=== PATIENT | female | born 1955 | race Caucasian/White ===

== ENCOUNTER → 2024-05-16 | Outpatient (CLI) | payer MEDICARE ==
--- NOTE | 2024-05-16 10:15 | CTL ---
EXAMINATION TYPE: CT Low Dose Lung DATE OF EXAM ORDERED: 05/16/2024 COMPARISON: None. CLINICAL INDICATION: Female, 68 years old with history of Z12.2 LUNG CA SCR Z87.891 FORMER SMOKER; PH H, Former smoker., Lung cancer screening, History of Smoking/tobacco use. TECHNIQUE: Low dose computed tomography scan was performed through the chest at 1 mm thick sections a nd reconstructed images in multiple planes at 1 mm and [address] DLP: [address] CTDI: 1.95 mGy Automated exposure control for dose reduction was used. CT DIAGNOSTIC QUALITY: Limited, but interpretable FINDINGS: Nodules: RUL: There is 6 x 3 mm medial right upper lobe pulmonary nodule image 69. RML: None. RLL: None. MALVIN: None. LLL: None. No greater than 6 mm pulmonary nodules seen bilaterally LUNGS: COPD: Severity: Mild Fibrosis: Severity: None Lymph nodes: None Other findings: None RIGHT PLEURAL SPACE: Effusion: None Calcification: None Thickening: None Pneumothorax: None Elevated right hemidiaphragm noted. LEFT PLEURAL SPACE: Effusion: None Calcification: None Thickening: None Pneumothorax: None HEART: Heart Size: Normal Coronary Calcification: Moderate to severe Pericardial Effusion: None OTHER FINDINGS: Upper abdomen: None Bony thorax: Surgical change to the lumbar spine is partially seen on the localizer. Scoliotic curvat ure in the thoracic spine is present. Supraclavicular region: None Other: None IMPRESSION: Mild emphysematous change without greater than [address] LUNG RAD AND CT CHEST RECOMMENDATION: Lung-Rad 2 Benign Appearance or Behavior: Continue annual sc reening with LDCT in 12 months. S Modifier (other clinically significant findings): S Moderate to severe coronary artery calcification should be correlated with additional cardiac risk fa ctors. [facility], , 05/16/2024 10:13 AM
== END | disposition home or self-care (01) ==
LOC: RADCTMAIN 09:26
PROVIDERS: ATTEND Internal Medicine Critical Care Medicine
DX: Z12.2 Encounter for screening for malignant neoplasm of respiratory organs (principal); J43.9 Emphysema, unspecified; I25.10 Atherosclerotic heart disease of native coronary artery without angina pectoris
CPT/HCPCS: 71271

== ENCOUNTER → 2024-05-16 | Outpatient (CLI) | payer MEDICARE ==
--- NOTE | 2024-05-16 11:38 | FL ---
EXAMINATION TYPE: FL sniff test without CXR DATE OF EXAM: 05/16/2024 COMPARISON: NONE HISTORY: Elevated right hemidiaphragm TECHNIQUE: Sniff test.41 secs FL FINDINGS: There is paradoxic motion of the right hemidiaphragm relative to normal incursion and excu rsion of the left hemidiaphragm. IMPRESSION: Paralyzed right hemidiaphragm [facility], , 05/16/2024 11:36 AM
== END | disposition home or self-care (01) ==
LOC: RADFLMAIN 09:23
PROVIDERS: ATTEND Internal Medicine Critical Care Medicine
DX: Q79.1 Other congenital malformations of diaphragm (principal)
CPT/HCPCS: 76000

== ENCOUNTER 2024-07-05 00:01 | Inpatient (IN) | payer MEDICARE ==
[2024-07-05 02:21] LABS: Basophils # (A) 0.04 10*3/uL (0.00-0.10); Basophils % (A) 0.3 %; Eosinophils % (A) 2.4 %; HCT 31.2 % (37.2-46.3); HGB 9.4 g/dL (12.0-15.0); Lymphocytes % (A) 31.6 %; MCH 20.4 pg (27.0-32.0); MCHC 30.1 g/dL (32.0-37.0); MCV 67.7 fL (80.0-97.0); Mean Platelet Volume 8.6 fL (9.5-12.2); Monocytes # (A) 1.33 10*3/uL (0.20-1.00); Monocytes % (A) 10.5 %; Neutrophils # (A) 6.92 10*3/uL (1.80-7.70); Neutrophils % (A) 54.7 %; Platelet Count 494 10*3/uL (140-440); RBC 4.61 10*6/uL (4.10-5.20); RDW 19.4 % (11.5-14.5); WBC 12.65 10*3/uL (4.50-10.00)
--- NOTE | 2024-07-05 02:30 | ED ---
Chest Pain HPI - General Chief Complaint: Chest Pain Stated Complaint: transfer Time Seen by Provider: 07/05/24 00:30 Source: patient, EMS Mode of arrival: EMS - History of Present Illness Initial Comments: This patient is a 68-year-old woman who arrives as a transfer from [facility]. She states that she had been having some chest pain over the past day but then it became more severe today and she went to the other hospital to have evaluation. The patient states that she was told that she may be having a heart attack and was transferred here to have additional testing. Patient states that guys all were getting so she is feeling better after medication there and there is no pain currently. The patient had workup including laboratories, the CBC revealed a low hemoglobin at 9.4, white blood cell count 9.73 thousand, platelets 547,000. Chemistries revealed mild hyponatremia at 133 the patient's high-sensitivity troponin mildly elevated at 72. Chest x-ray which shows elevated right hemidiaphragm MD Complaint: chest pain Onset/Timin -: days(s) Onset: during rest Pain Location: left chest, right chest Pain Radiation: none Severity: moderate Quality: heaviness Consistency: constant, now resolved Improves With: medication-other Worsens With: nothing Treatments Prior to Arrival: aspirin, nitroglycerin, oxygen - Related Data Home Medications Medication Instructions Recorded Confirmed Cyclobenzaprine [Flexeril] 5 mg PO BID 07/05/24 07/05/24 FLUoxetine HCL 40 mg PO DAILY 07/05/24 07/05/24 FLUoxetine HCL [PROzac] 20 mg PO DAILY 07/05/24 07/05/24 HYDROcodone/APAP 5-325MG [[place] 1 tab PO Q6HR 07/05/24 07/05/24 5-325] Ipratropium-Albuterol Nebulize 3 ml INHALATION RT-QID PRN 07/05/24 07/05/24 [Duoneb 0.5 mg-3 mg/3 ml Soln] buPROPion XL [Wellbutrin XL] 150 mg PO DAILY 07/05/24 07/05/24 clonazePAM [KlonoPIN] 0.5 mg PO BID@0800,1200 07/05/24 07/05/24 clonazePAM [KlonoPIN] 1 mg PO HS 07/05/24 07/05/24 Previous Rx's Medication Instructions Recorded Aspirin 81 mg PO DAILY tab 07/05/24 Atorvastatin [Lipitor] 80 mg PO HS tab 07/05/24 Nitroglycerin Sl Tabs [Nitrostat] 0.4 mg SUBLINGUAL Q5M PRN tab 07/05/24 Metoprolol Tartrate [Lopressor] 25 mg PO BID #180 tab 07/07/24 Ticagrelor [Brilinta] 90 mg PO BID #180 tab 07/07/24 Allergies Allergy/AdvReac Type Severity Reaction Status Date / Time Sulfa (Sulfonamide Allergy Rash/Hives Verified 07/05/24 11:43 Antibiotics) Review of Systems ROS Statement: Those systems with pertinent positive or pertinent negative responses have been documented in the HPI. ROS Other: All systems not noted in ROS Statement are negative. Constitutional: Denies: fever, chills, weakness Respiratory: Reports: dyspnea. Denies: cough, wheezes Cardiovascular: Reports: chest pain. Denies: palpitations, dyspnea on exertion, orthopnea, edema, syncope Gastrointestinal: Denies: abdominal pain, nausea, vomiting Genitourinary: Denies: dysuria, hematuria Musculoskeletal: Denies: back pain Skin: Denies: rash Neurological: Denies: headache, weakness, numbness EKG Findings - EKG Results: EKG: interpreted by ERMD, sinus rhythm (Rate 76 bpm), normal axis, normal QRS, normal ST/T, no acute changes Past Medical History Past Medical History: COPD Additional Past Medical History / Comment(s): chronic back pain Past Surgical History: Back Surgery Smoking Status: Former smoker Past Alcohol Use History: None Reported Past Drug Use History: None Reported - Past Family History Father Family Medical History: Cancer, Coronary Artery Disease (CAD), Diabetes Mellitus Mother Family Medical History: Dementia Brother(s) Family Medical History: Cancer Sister(s) Family Medical History: Cancer General Exam General appearance: alert, in no apparent distress Head exam: Present: atraumatic, normocephalic Eye exam: Present: normal appearance. Absent: scleral icterus, conjunctival injection ENT exam: Present: normal oropharynx Neck exam: Present: normal inspection Respiratory exam: Present: normal lung sounds bilaterally. Absent: respiratory distress, wheezes, rales, rhonchi, stridor, accessory muscle use Cardiovascular Exam: Present: regular rate, normal rhythm, normal heart sounds. Absent: systolic murmur, diastolic murmur, rubs, gallop GI/Abdominal exam: Present: soft. Absent: distended, tenderness, guarding, rebound, rigid, mass Extremities exam: Present: normal inspection, normal capillary refill. Absent: pedal edema, calf tenderness Back exam: Present: normal inspection. Absent: CVA tenderness (R), CVA tenderness (L) Neurological exam: Present: alert Skin exam: Present: warm, dry, intact, normal color. Absent: rash Course Vital Signs 07/05/24 07/05/24 07/05/24 00:03 02:09 06:19 Temperature 98.9 F Pulse Rate 91 91 81 Respiratory 18 18 17 Rate Blood Pressure 165/104 146/105 137/101 O2 Sat by Pulse 94 L 91 L Oximetry 07/05/24 07/05/24 09:19 14:07 Temperature 97.8 F 97.8 F Pulse Rate 87 95 Respiratory 18 18 Rate Blood Pressure 118/79 117/71 O2 Sat by Pulse 96 97 Oximetry Chest Pain MDM - MDM Was pt. sent in by a medical professional or institution (, PA, LINE PAINTING MACHINE OPERATOR, urgent care, hospital, or shelter...) When possible be specific @ -[No] Did you speak to anyone other than the patient for history (EMS, parent, family, police, friend...)? What history was obtained from this source @ -[The patient's family did contribute to history Did you review nursing and triage notes (agree or disagree)? Why? @ -[I reviewed and agree with nursing and triage notes] Were old charts reviewed (outside hosp., previous admission, EMS record, old EKG, old radiological studies, urgent care reports/EKG's, shelter records)? Report findings @ -[The transfer records were reviewed] Differential Diagnosis (chest pain, altered mental status, abdominal pain women, abdominal pain men, vaginal bleeding, weakness, fever, dyspnea, syncope, heada staci, dizziness, GI bleed, back pain, seizure, CVA, palpatations, mental health, musculoskeletal)? @ -[Differential Chest Pain: Stable Angina, Unstable Angina, STEMI, NSTEMI Aortic Dissection, Pneumothorax, Musculoskeletal, Esophageal Spasm GERD, Cholecystitis, Pancreatitis, Zoster, this is not meant to be an all-inclusive list. EKG interpreted by me (3pts min.). @ -[I interpreted as above] X-rays interpreted by me (1pt min.). @ -[None done] CT interpreted by me (1pt min.). @ -[None done] U/S interpreted by me (1pt. min.). @ -[None done] What testing was considered but not performed or refused? (CT, X-rays, U/S, labs)? Why? @ -[None] What meds were considered but not given or refused? Why? @ -[None] Did you discuss the management of the patient with other professionals (professionals i.e. , PA, LINE PAINTING MACHINE OPERATOR, lab, RT, psych nurse, social staff worker, army officer, teacher, ground nuclear weapons assembly officer, case sealer)? Give summary @ -[Case discussed with admitting physician and treatment recommendations are i ncorporated Was smoking cessation discussed for >3mins.? @ -[No] Was critical care preformed (if so, how long)? @ -[Yes, 30 minutes Were there social determinants of health that impacted care today? How? (Homelessness, low income, unemployed, alcoholism, drug addiction, transportation, low edu. Level, literacy, decrease access to med. care, skilled nursing, rehab)? @ -[No] Was there de-escalation of care discussed even if they declined (Discuss DNR or withdrawal of care, Hospice)? DNR status @ -[No] What co-morbidities impacted this encounter? (DM, HTN, Smoking, COPD, CAD, Cancer, CVA, ARF, Chemo, Hep., AIDS, mental health diagnosis, sleep apnea, morbid obesity)? @ -[Hyper COPD, history of previous smoking Was patient admitted / discharged? Hospital course, mention meds given and route, prescriptions, significant lab abnormalities, going to OR and other pertinent info. @ -[Patient is a 68-year-old woman who was transferred here from the outside hospital where she had gone after being referred from an urgent care. At the other hospital she was found to have elevated troponin and is transferred here. The patient is not having any cardiac symptoms at the time of arrival. At this point differential is NSTEMI versus an element of viral cardiomyopathy related to current influenza infection The patient admitted to have further cardiology evaluation and treatment Undiagnosed new problem with uncertain prognosis? @ -[No] Drug Therapy requiring intensive monitoring for toxicity (Heparin, Nitro, Insulin, Cardizem)? @ -[Heparin Were any procedures done? @ -[No] Diagnosis/symptom? @ -[Acute influenza infection NSTEMI Acute, or Chronic, or Acute on Chronic? @ -[Acute Uncomplicated (without systemic symptoms) or Complicated (systemic symptoms)? @ -[Uncomplicated Side effects of treatment? @ -[No] Exacerbation, Progression, or Severe Exacerbation? @ -[No] Poses a threat to life or bodily function? How? (Chest pain, [place], [place], pneumonia, PE, COPD, DKA, ARF, appy, cholecystitis, CVA, Diverticulitis, Homicidal, Suicidal, threat to staff... and all critical care pts) @ -[Yes, requires cardiology evaluation All treatments are based on ideal body weight as in ED triage Disposition Clinical Impression: Acute non-ST elevation myocardial infarction (NSTEMI) Disposition: ADMITTED IP TO THIS HOSP Condition: Fair Is patient prescribed a controlled substance at d/c from ED?: No
[2024-07-05 02:35] LABS: Prothrombin Time 11.5 sec (10.0-12.5)
[2024-07-05 02:50] LABS: ALT 16 U/L (4-34); AST 30 U/L (14-36); African American GFR (CKD) >90 (>60 ml/min/1.73 sqM); Albumin 4.1 g/dL (3.5-5.0); Alkaline Phosphatase 60 U/L (38-126); Anion Gap 8 mmol/L; Blood Urea Nitrogen 18 mg/dL (7-17); Calcium 9.4 mg/dL (8.4-10.2); Carbon Dioxide 27 mmol/L (22-30); Chloride 101 mmol/L (98-107); Glucose 98 mg/dL (74-99); Magnesium 1.9 mg/dL (1.6-2.3); Non-African American GFR(CKD) 89 (>60 ml/min/1.73 sqM); Potassium 3.7 mmol/L (3.5-5.1); Sodium 136 mmol/L (137-145); Total Bilirubin 0.5 mg/dL (0.2-1.3); Total Protein 6.8 g/dL (6.3-8.2)
[2024-07-05] MEDS ORDERED: NITROGLYCERIN SL TABS 0.4 MG TAB SUBLINGUAL PRN (03:15)
[2024-07-05] MEDS: HEPARIN SODIUM 1,000 UN/ML (10ML VL) IV ONE (03:30)
[2024-07-05] MEDS: HEPARIN SOD,PORK IN 0.45% NACL 25,000 UNIT in 0.45% NACL 1 250ML.BAG IV SCH (03:31)
--- NOTE | 2024-07-05 12:16 | P.CRDCN ---
History of Present Illness History of present illness: HISTORY OF PRESENT ILLNESS: This is a 68-year-old female with a past medical history significant for COPD with occasional home oxygen use. Patient does not follow with a target trimmer. We have been asked to see the patient in consultation for chest pain. Patient examined at the bedside in the emergency room. Patient initially presented to [facility] with a chief complaint of chest discomfort. Patient was found to have elevated troponins and she was transferred to [facility] for further evaluation. Patient was placed on IV heparin. At the time of examination she denies any chest pain or pressure. She denies any shortness of breath. She is a former cigarette smoker and quit smoking 2 years ago. She denies any history of hypertension, hyperlipidemia, or diabetes. She denies any known history of CAD. DIAGNOSTICS: - EKG reveals sinus mechanism with nonspecific ST-T wave changes. - Laboratory data: WBC 12.65. Hemoglobin 9.4. Platelet count 494. Sodium 136. Potassium 3.7. BUN 18. Creatinine 0.69. Troponin 1.360. 1.480. 1.630. - Current home cardiac medications include none. - No previous echocardiogram, stress test, or cardiac catheterization available in EMR for review REVIEW OF SYSTEMS: At the time of my exam: CONSTITUTIONAL: Denies fever or chills. HEENT: Denies blurred vision, vision changes, or eye pain. Denies hemoptysis CARDIOVASCULAR: Denies chest pain. Denies orthopnea. Denies PND. Denies palpitations RESPIRATORY: Denies shortness of breath. GASTROINTESTINAL: Denies abdominal pain. Denies nausea or vomiting. HEMATOLOGIC: Denies bleeding disorders. GENITOURINARY: Denies any blood in urine. SKIN: Denies pruitis. Denies rash. PHYSICAL EXAM: VITAL SIGNS: Reviewed. GENERAL: Well-developed in no acute distress. HEENT: Head is normocephalic. Pupils are equal, round. Sclerae anicteric. Mucous membranes of the mouth are moist. Neck supple. No JVD or thyromegaly LUNGS: Respirations even and unlabored. Lungs essentially clear to auscultation bilaterally. HEART: Regular rate and rhythm. S1 and S2 heard. ABDOMEN: Soft. Nondistended. Nontender. EXTREMITIES: Normal range of motion. No clubbing or cyanosis. Peripheral pulses intact. No lower extremity edema NEUROLOGIC: Awake and alert. Oriented x 3. ASSESSMENT: Non-STEMI COPD with occasional home oxygen use Former nicotine dependence, patient quit smoking 2 years ago PLAN: Obtain 2D echo to assess cardiac structure and function Continue IV heparin Add aspirin 81 mg daily Add Lipitor 80 mg at night Add Nitropaste Check lipid panel and hemoglobin A1c N.p.o. at midnight Patient to undergo cardiac catheterization tomorrow with Dr. Jean Baptiste Nurse practitioner note has been reviewed by physician. Signing provider agrees with the documented findings, assessment, and plan of care documented by CARVING MACHINE OPERATOR as a scribe. Past Medical History Past Medical History: COPD Additional Past Medical History / Comment(s): chronic back pain Past Surgical History: Back Surgery Smoking Status: Former smoker Past Alcohol Use History: None Reported Past Drug Use History: None Reported Medications and Allergies Home Medications Medication Instructions Recorded Confirmed Type Cyclobenzaprine [Flexeril] 5 mg PO BID 07/05/24 07/05/24 History Doxycycline Hyclate 100 mg PO Q12H 07/05/24 07/05/24 History FLUoxetine HCL 40 mg PO DAILY 07/05/24 07/05/24 History FLUoxetine HCL [PROzac] 20 mg PO DAILY 07/05/24 07/05/24 History HYDROcodone/APAP 5-325MG [[place] 1 tab PO Q6HR 07/05/24 07/05/24 History 5-325] Ibuprofen [Motrin] 800 mg PO BID 07/05/24 07/05/24 History Ipratropium-Albuterol Nebulize 3 ml INHALATION RT-QID PRN 07/05/24 07/05/24 Hi story [Duoneb 0.5 mg-3 mg/3 ml Soln] buPROPion XL [Wellbutrin XL] 150 mg PO DAILY 07/05/24 07/05/24 History clonazePAM [KlonoPIN] 0.5 mg PO BID@0800,1200 07/05/24 07/05/24 History clonazePAM [KlonoPIN] 1 mg PO HS 07/05/24 07/05/24 History predniSONE [Deltasone] 20 mg PO BID-W/MEALS 07/05/24 07/05/24 History Allergies Allergy/AdvReac Type Severity Reaction Status Date / Time Sulfa (Sulfonamide Allergy Rash/Hives Verified 07/05/24 11:43 Antibiotics) Physical Exam Vitals: Vital Signs Temp Pulse Resp BP Pulse Ox 07/05/24 09:19 97.8 F 87 18 118/79 96 07/05/24 06:19 81 17 137/101 91 L 07/05/24 02:09 91 18 146/105 07/05/24 00:03 98.9 F 91 18 165/104 94 L Intake and Output 07/04/24 07/05/24 07/05/24 22:59 06:59 14:59 Other: Weight 70.307 kg Results 07/05/24 02:08 07/05/24 02:09 Cardiac Enzymes 07/05/24 07/05/24 07/05/24 Range/Units 02:09 02:09 03:21 AST 30 (14-36) U/L Troponin I 1.360 H* 1.480 H* (0.000-0.034) ng/mL 07/05/24 Range/Units 06:27 AST (14-36) U/L Troponin I 1.630 H* (0.000-0.034) ng/mL Coagulation 07/05/24 07/05/24 Range/Units 02:09 09:26 PT 11.5 (10.0-12.5) sec APTT 31.0 H 30.3 H (22.0-30.0) sec CBC 07/05/24 Range/Units 02:08 WBC 12.65 H (4.50-10.00) 10*3/uL RBC 4.61 (4.10-5.20) 10*6/uL Hgb 9.4 L (12.0-15.0) g/dL Hct 31.2 L (37.2-46.3) % Plt Count 494 H (140-440) 10*3/uL Comprehensive Metabolic Panel 07/05/24 Range/Units 02:09 Sodium 136 L (137-145) mmol/L Potassium 3.7 (3.5-5.1) mmol/L Chloride 101 (98-107) mmol/L Carbon Dioxide 27 (22-30) mmol/L BUN 18 H (7-17) mg/dL Creatinine 0.69 (0.52-1.04) mg/dL Glucose 98 (74-99) mg/dL Calcium 9.4 (8.4-10.2) mg/dL AST 30 (14-36) U/L ALT 16 (4-34) U/L Alkaline Phosphatase 60 (38-126) U/L Total Protein 6.8 (6.3-8.2) g/dL Albumin 4.1 (3.5-5.0) g/dL Current Medications Generic Name Dose Route Start Last Admin Trade Name Freq PRN Reason Stop Dose Admin Aspirin 325 mg 07/06/24 09:00 Aspirin 325 Mg Tab PO DAILY STEPHANI Heparin Sodium (Porcine) 0 unit 07/05/24 03:14 Heparin Sodium 1,000 Un/Ml (10ml Vl) IV PER PROTOCOL PRN Low PTT Protocol Heparin Sodium/Sodium Chloride 250 mls @ 8.437 mls/hr 07/05/24 03:15 07/05/24 03:31 25,000 unit/ Sodium Chloride IV 12 units/kg/hr .Q24H STEPHANI 8.437 mls/hr Administration Protocol 12 UNITS/KG/HR Nitroglycerin 0.4 mg 07/05/24 03:15 Nitroglycerin Sl Tabs 0.4 Mg Tab SUBLINGUAL Q5M PRN Chest Pain Intake and Output 07/04/24 07/05/24 07/05/24 22:59 06:59 14:59 Other: Weight 70.307 kg 07/05/24 02:08 07/05/24 02:09
[2024-07-05] MEDS: HEPARIN SODIUM 1,000 UN/ML (10ML VL) IV PRN (13:04)
[2024-07-05] MEDS: NITROGLYCERIN OINT 1 INCH/GM PACKET TOPICAL SCH (16:33)
--- NOTE | 2024-07-05 18:45 | P.HPIM ---
History of Present Illness H&P Date: 07/05/24 Chief Complaint: Chest tightness Pleasant 68-year-old patient who follows with Dr. Vianney Garzon. Chronic medical conditions include diabetes, COPD, anxiety. Chronic back pain has had surgery including rods and screws. And muscle spasms Patient just finishing course of steroids and doxycycline for flareup of her COPD. 3 days ago patient noticed increased chest tightness. That is on . She felt it was part of her COPD exacerbation. Then it got better. Yesterday symptoms became much worse. No dizziness no lightheadedness. Did feel more tired. No perspiration. Patient went down to [facility]. High- sensitivity troponin was 72 and 51. Patient was sent in for acute non-Q wave KS. Initial troponin here was 1.3 then 1.4. Cardiology was informed. Patient started on IV heparin. Currently no chest pain. Patient daughter at the bedside. Review of systems: GEN.: Tired EYES: None HEENT: None NECK: None RESPIRATORY: Chronic some shortness of breath CARDIOVASCULAR: As above] GASTROINTESTINAL: None GENITOURINARY: None MUSCULOSKELETAL: Chronic back pain LYMPHATICS: None HEMATOLOGICAL: None PSYCHIATRY: None NEUROLOGICAL: None Social history: Patient lives with her boyfriend.. Averaged about a pack a day for [address] opped 2 years ago. Occasional alcohol Physical examination: VITAL SIGNS: 97.8, 87, 18, 118 x 79, 96% room air GENERAL: BMI 26.6, reclining bed awake comfortable. EYES: Pupils equal. Conjunctiva ajit l. HEENT: External appearance of nose and ears normal, oral cavity grossly normal. NECK: JVD not raised; masses not palpable. HEART: First and second heart sounds are normal; no edema. LUNGS: Respiratory rate normal; diminished breath sounds. ABDOMEN: Soft, nontender, liver spleen not palpable, no masses palpable. PSYCH: Alert and oriented x3; mood and affect ajit l. MUSCULOSKELETAL:No Clubbing/cyanosis;muscles-grossly intact. OA in several joints NEUROLOGICAL: Cranial nerves grossly intact; no facial asymmetry, power and sensation grossly intact. LYMPHATICS: No lymph nodes palpable in the axilla and neck INVESTIGATIONS, reviewed in the clinical context: July 05, 2024: White count 12.6 hemoglobin 9.4 platelets 494 sodium 136 potassium 3.7 BUN 18 creatinine 0.69 Troponin I 1.36, 1.48, 1.63 EKG tracing personally reviewed by me-normal sinus rhythm Assessment plan: - Acute non-Q wave KS. Cardiac risk factors include longstanding history of smoking. Postmenopausal. Aspirin. Lipitor. IV heparin Cardiology was informed. Pending cardiac catheterization - Microcytic anemia Check iron profile. Guaiac stool. - IV heparin monitoring. Follow protocol - COPD in a previous smoker DuoNeb - Chronic low back pain for prior lumbar surgery with rods and screws [place] every 6. Flexeril. Hold off NSAIDs - Depression and anxiety Wellbutrin XL. Klonopin. Prozac. - Hyperlipidemia Lipitor Care was discussed with the patient and her daughter . Past Medical History Past Medical History: COPD Additional Past Medical History / Comment(s): chronic back pain Past Surgical History: Back Surgery Smoking Status: Former smoker Past Alcohol Use History: None Reported Past Drug Use History: None Reported - Past Family History Father Family Medical History: Cancer, Coronary Artery Disease (CAD), Diabetes Mellitus Mother Family Medical History: Dementia Brother(s) Family Medical History: Cancer Sister(s) Family Medical History: Cancer Medications and Allergies Home Medications Medication Instructions Recorded Confirmed Type Aspirin 81 mg PO DAILY tab 07/05/24 Rx Atorvastatin [Lipitor] 80 mg PO HS tab 07/05/24 Rx Cyclobenzaprine [Flexeril] 5 mg PO BID 07/05/24 07/05/24 History FLUoxetine HCL 40 mg PO DAILY 07/05/24 07/05/24 History FLUoxetine HCL [PROzac] 20 mg PO DAILY 07/05/24 07/05/24 History HYDROcodone/APAP 5-325MG [[place] 1 tab PO Q6HR 07/05/24 07/05/24 History 5-325] Ibuprofen [Motrin] 800 mg PO BID 07/05/24 07/05/24 History Ipratropium-Albuterol Nebulize 3 ml INHALATION RT-QID PRN 07/05/24 07/05/24 History [Duoneb 0.5 mg-3 mg/3 ml Soln] Nitroglycerin Sl Tabs [Nitrostat] 0.4 mg SUBLINGUAL Q5M PRN tab 07/05/24 Rx buPROPion XL [Wellbutrin XL] 150 mg PO DAILY 07/05/24 07/05/24 History clonazePAM [KlonoPIN] 0.5 mg PO BID@0800,1200 07/05/24 07/05/24 History clonazePAM [KlonoPIN] 1 mg PO HS 07/05/24 07/05/24 History Allergies Allergy/AdvReac Type Severity Reaction Status Date / Time Sulfa (Sulfonamide Allergy Rash/Hives Verified 07/05/24 11:43 Antibiotics) Physical Exam Vitals: Vital Signs Temp Pulse Resp BP Pulse Ox 07/05/24 09:19 97.8 F 87 18 118/79 96 07/05/24 06:19 81 17 137/101 91 L 07/05/24 02:09 91 18 146/105 07/05/24 00:03 98.9 F 91 18 165/104 94 L Intake and Output 07/04/24 07/05/24 07/05/24 22:59 06:59 14:59 Other: Weight 70.307 kg Results CBC & Chem 7: 07/05/24 02:08 07/05/24 02:09 Labs: Abnormal Lab Results - Last 24 Hours (Table) 07/05/24 07/05/24 07/05/24 Range/Units 02:08 02:09 02:09 WBC 12.65 H (4.50-10.00) 10*3/uL Hgb 9.4 L (12.0-15.0) g/dL Hct 31.2 L (37.2-46.3) % MCV 67.7 L (80.0-97.0) fL MCH 20.4 L (27.0-32.0) pg MCHC 30.1 L (32.0-37.0) g/dL Plt Count 494 H (140-440) 10*3/uL MPV 8.6 L (9.5-12.2) fL Immature Gran # 0.06 H (0.00-0.04) 10*3/uL Monocytes # 1.33 H (0.20-1.00) 10*3/uL APTT 31.0 H (22.0-30.0) sec Sodium 136 L (137-145) mmol/L BUN 18 H (7-17) mg/dL Troponin I (0.000-0.034) ng/mL 07/05/24 07/05/24 07/05/24 Range/Units 02:09 03:21 06:27 WBC (4.50-10.00) 10*3/uL Hgb (12.0-15.0) g/dL Hct (37.2-46.3) % MCV (80.0-97.0) fL MCH (27.0-32.0) pg MCHC (32.0-37.0) g/dL Plt Count (140-440) 10*3/uL MPV (9.5-12.2) fL Immature Gran # (0.00-0.04) 10*3/uL Monocytes # (0.20-1.00) 10*3/uL APTT (22.0-30.0) sec Sodium (137-145) mmol/L BUN (7-17) mg/dL Troponin I 1.360 H* 1.480 H* 1.630 H* (0.000-0.034) ng/mL 07/05/24 Range/Units 09:26 WBC (4.50-10.00) 10*3/uL Hgb (12.0-15.0) g/dL Hct (37.2-46.3) % MCV (80.0-97.0) fL MCH (27.0-32.0) pg MCHC (32.0-37.0) g/dL Plt Count (140-440) 10*3/uL MPV (9.5-12.2) fL Immature Gran # (0.00-0.04) 10*3/uL Monocytes # (0.20-1.00) 10*3/uL APTT 30.3 H (22.0-30.0) sec Sodium (137-145) mmol/L BUN (7-17) mg/dL Troponin I (0.000-0.034) ng/mL
[2024-07-05] MEDS: IPRATROPIUM-ALBUTEROL 3 ML NEB INHALATION SCH (19:55)
[2024-07-05] MEDS: CYCLOBENZAPRINE 5 MG TAB PO SCH (19:59)
[2024-07-05] MEDS: clonazePAM 1 MG TAB PO SCH (19:59)
[2024-07-05] MEDS: ATORVASTATIN 80 MG TAB PO SCH (20:00)
--- NOTE | 2024-07-05 20:21 | XR ---
EXAMINATION TYPE: XR chest 2V DATE OF EXAM: 07/05/2024 8:16 PM COMPARISON: none CLINICAL INDICATION: Female, 68 years old with history of copd; TECHNIQUE: XR chest 2V Frontal and lateral views of the chest. FINDINGS: Lungs/Pleura: There is no evidence of pleural effusion, focal consolidation, or pneumothorax. Pulmonary vascularity: Unremarkable. Heart/mediastinum: Cardiomediastinal silhouette is unremarkable. Musculoskeletal: No acute osseous pathology. IMPRESSION: No acute cardiopulmonary disease/process. [facility], , 07/05/2024 8:19 PM
[2024-07-05] MEDS: HYDROcodone/APAP 5-325MG 1 EACH TAB PO SCH (23:42)
[2024-07-06] MEDS: FLUoxetine HCL 20 MG CAP PO SCH (06:10)
[2024-07-06] MEDS: ASPIRIN 81 MG PO SCH (06:10)
[2024-07-06] MEDS: clonazePAM 0.5 MG TAB PO SCH (06:10)
[2024-07-06] MEDS: buPROPion XL 150 MG TAB.ER.24H PO SCH (06:10)
[2024-07-06] MEDS ORDERED: NITROGLYCERIN SL TABS 0.4 MG TAB SUBLINGUAL PRN (07:14)
[2024-07-06] MEDS ORDERED: ASPIRIN 325 MG TAB PO STA (07:14)
[2024-07-06] MEDS ORDERED: ALPRAZolam 0.25 MG TAB PO PRN (07:14)
[2024-07-06] MEDS ORDERED: ALPRAZolam 0.5 MG TAB PO PRN (07:14)
--- NOTE | 2024-07-06 07:43 | CA ---
Transthoracic Echo Report Name: Rebekah Ratliff Age: 68 Gender: F : 1955 Exam Date: 07/05/2024 18:03 Exam Location: [facility] Ht (in): 64 Wt (lb): 155 Ordering Physician: Vivian Pablo Attending/Referring Phys: [id number], [employer] Field Supervisor Kailee Do, CHRISTOS Procedure CPT: Indications: LV function, CP, NSTEMI Cardiac Hx: Technical Quality: Fair Contrast 1: Total Dose (mL): Contrast 2: Total Dose (mL): MEASUREMENTS (Male / Female) Normal Values 2D ECHO LV Diastolic Diameter PLAX 4.1 cm 4.2 - 5.9 / 3.9 - 5.3 cm LV Systolic Diameter PLAX 2.1 cm IVS Diastolic Thickness 1.3 cm 0.6 - 1.0 / 0.6 - 0.9 cm LVPW Diastolic Thickness 1.3 cm 0.6 - 1.0 / 0.6 - 0.9 cm LV Relative Wall Thickness 0.6 RV Internal Dim ED PLAX 2.6 cm LA Systolic Diameter LX 3.5 cm 3.0 - 4.0 / 2.7 - 3.8 cm LV Diastolic Volume MOD BP 46.6 cm??? 67 - 155 / 56 - 104 cm??? LV Systolic Volume MOD BP 21.4 cm??? 22 - 58 / 19 - 49 cm??? LV Ejection Fraction MOD BP 54.1 % >= 55 % LV Cardiac Index MOD BP 1514.1 cm???/min???m??? LV Diastolic Volume MOD 4C 45.8 cm??? LV Systolic Volume MOD 4C 22.9 cm??? LV Ejection Fraction MOD 4C 49.9 % LV Cardiac Index MOD 4C 1374.1 cm???/min???m??? LV Diastolic Length 4C 7.3 cm LV Systolic Length 4C 6.5 cm LV Diastolic Volume MOD 2C 47.5 cm??? LV Systolic Volume MOD 2C 18.9 cm??? LV Ejection Fraction MOD 2C 60.3 % LV Cardiac Index MOD 2C 1720.6 cm???/min???m??? LV Diastolic Length 2C 7.2 cm LV Systolic Length 2C 6.0 cm LA Volume 43.6 cm??? 18 - 58 / 22 - 52 cm??? LA Volume Index 24.2 cm???/m??? 16 - 28 cm???/m??? M-MODE Aortic Root Diameter MM 3.6 cm LA Systolic Diameter MM 2.5 cm LA Ao Ratio MM 0.7 AV Cusp Separation MM 1.6 cm DOPPLER AI Peak Velocity 410.2 cm/s AI Peak Gradient 67.3 mmHg AI Pressure Half Time 1254.0 ms MV Area PHT 10.2 cm??? Mitral E Point Velocity 111.3 cm/s Mitral A Point Velocity 156.6 cm/s Mitral E to A Ratio 0.7 MV Deceleration Time 74.1 ms TR Peak Velocity 321.7 cm/s TR Peak Gradient 41.4 mmHg Right Atrial Pressure 5.0 mmHg Pulmonary Artery Systolic Pressu 46.4 mmHg Right Ventricular Systolic Press 46.4 mmHg FINDINGS Left Ventricle Left ventricular ejection fraction is estimated at 65-70 %. Moderately increased septal wall thickness. Moderately increased posterior wall thickness. Hyperdynamic left ventricular systolic function. Left ventricular cavity size normal. Increased LVOT velocity, PG 135 mmHg. LVOTO. Right Ventricle Mild right ventricular dilatation. Moderate pulmonary hypertension. Right Atrium Normal right atrial size. Left Atrium Mild left atrial dilatation. Mitral Valve Systolic anterior motion of the mitral valve chordae. Moderate mitral regurgitation. No mitral stenosis. Aortic Valve Trileaflet aortic valve. No aortic stenosis. Mild aortic regurgitation. Tricuspid Valve Structurally normal tricuspid valve. Mild tricuspid regurgitation. No tricuspid stenosis. Pulmonic Valve Structurally normal pulmonic valve. Trace pulmonic regurgitation. No pulmonic stenosis. Pericardium No pericardial or pleural effusion. Echo free space anterior to the right ventricle likely represents a fat pad. Aorta Aorta at upper limits of normal. CONCLUSIONS Left ventricular hypertrophy with normal LV systolic function Moderate mitral regurgitation Mild aortic regurgitation Hypertrophic cardiomyopathy with a gradient of 130 mm across the left ventricular outflow tract with systolic anterior motion of the mitral valve Previewed by: Dr. Cristobal Jean Baptiste MD (Electronically Signed) Final Date: 06 Jul 2024 07:42
[2024-07-06 08:04] LABS: Basophils # (A) 0.08 10*3/uL (0.00-0.10); Basophils % (A) 0.8 %; Eosinophils % (A) 13.1 %; HGB 9.4 g/dL (12.0-15.0); Lymphocytes # (A) 3.24 10*3/uL (0.90-5.00); Lymphocytes % (A) 30.4 %; MCH 19.9 pg (27.0-32.0); MCHC 28.5 g/dL (32.0-37.0); MCV 69.8 fL (80.0-97.0); Mean Platelet Volume 8.6 fL (9.5-12.2); Monocytes # (A) 1.18 10*3/uL (0.20-1.00); Monocytes % (A) 11.1 %; Neutrophils # (A) 4.67 10*3/uL (1.80-7.70); Neutrophils % (A) 43.8 %; Platelet Count 499 10*3/uL (140-440); RBC 4.73 10*6/uL (4.10-5.20); RDW 20.1 % (11.5-14.5); WBC 10.65 10*3/uL (4.50-10.00)
[2024-07-06 08:10] LABS: INR 1.1 (<1.2); Prothrombin Time 11.8 sec (10.0-12.5)
[2024-07-06] MEDS: SODIUM CHLORIDE 0.9% 1,000 ML in EMPTY BAG 1 BAG IV SCH ×2 (08:16→13:34)
[2024-07-06] MEDS ORDERED: FLUOXETINE HCL 40 MG PO SCH (09:00)
[2024-07-06] MEDS ORDERED: ASPIRIN 325 MG TAB PO SCH (09:00)
[2024-07-06] MEDS ORDERED: FLUoxetine HCL 20 MG CAP PO SCH (09:00)
[2024-07-06] MEDS: ATORVASTATIN 80 MG TAB PO STA (09:19)
[2024-07-06 09:29] LABS: African American GFR (CKD) >90 (>60 ml/min/1.73 sqM); Anion Gap 11 mmol/L; Blood Urea Nitrogen 21 mg/dL (7-17); Carbon Dioxide 26 mmol/L (22-30); Chloride 100 mmol/L (98-107); Glucose 131 mg/dL (74-99); Non-African American GFR(CKD) 90 (>60 ml/min/1.73 sqM); Potassium 3.8 mmol/L (3.5-5.1); Sodium 137 mmol/L (137-145)
[2024-07-06] MEDS: IV FLUID CONTINUATION 1,000 ML IV ONE (10:15)
[2024-07-06] MEDS: HEPARIN SODIUM,PORCINE 10,000 UNIT in SODIUM CHLORIDE 0.9% 1,000 ML IRRIGATION ONE (10:16)
[2024-07-06] MEDS: HEPARIN SODIUM,PORCINE (1 ML) 2,500 UNIT in SODIUM CHLORIDE 0.9% 250 ML IRRIGATION ONE (10:17)
[2024-07-06] MEDS: MIDAZOLAM 2 MG/2 ML VIAL IVP ONE (10:42)
[2024-07-06] MEDS: fentaNYL (PF) 50 MCG/ML 2 ML AMP IVP ONE ×2 (10:45→11:58)
[2024-07-06] MEDS: LIDOCAINE 1% INJ 10MG/ML (20 ML MDV) SQ ONE (10:46)
[2024-07-06] MEDS: VERAPAMIL SYRINGE (5 MG/10 ML) INTRAARTER ONE (10:48)
[2024-07-06] MEDS: TICAGRELOR 90 MG TAB PO ONE (11:21)
[2024-07-06] MEDS: NITROGLYCERIN 1000MCG/10ML SYRINGE INTRACORON ONE (11:34)
[2024-07-06] MEDS: IOPAMIDOL-370 100ML BTL INJ ONE ×2 (11:40→11:59)
[2024-07-06] MEDS ORDERED: RX INFO: IV CONTRAST WAS GIVEN 1 EACH MISC MISCELLANE PRN (12:14)
[2024-07-06] MEDS ORDERED: MAG HYDROX/AL HYDROX/SIMETH 30 ML CUP PO PRN (12:14)
[2024-07-06] MEDS ORDERED: ATROPINE SULFATE 0.1 MG/ML 10ML SYRINGE IV PRN (12:14)
[2024-07-06] MEDS ORDERED: ZOLPIDEM 5 MG TAB PO PRN (12:14)
--- NOTE | 2024-07-06 12:14 | P.PRCINT ---
Percutaneous Coronary Int. - Percutaneous Coronary Intervention Percutaneous Coronary Intervention: PROCEDURES PERFORMED: Left coronary angiography, PCI circumflex into OM1 with a 2.75 x 33mm Xience ALETHA, post dilated with a 3.25mm NC balloon, intravascular ultrasound of the circumflex INDICATION: Non-STEMI CONSENT:I have discussed the risks, benefits and alternative therapies for the above-mentioned procedure and for both sedation/analgesia as well as necessary blood product administration, if indicated, as they pertain to this patient. The patient has indicated understanding and acceptance of the risks and procedures discussed. PROCEDURE: After the risks, benefits and alternatives of the above mentioned p rocedure explained in detail with the patient, informed consent was obtained. Patient was taken to the catheterization lab and prepped and draped in usual fashion. A 6-Ukrainian sheath had been placed in the right radial artery previously. The decision was made to perform PCI of the circumflex into the OM1 branch. Heparin was given. A 6 Ukrainian XB 3.5 catheter was used to engage the left main. A 0.014 BMW wire was advanced in the distal circumflex/OM1 branch. Next predilation was performed with a 2.5 x 12 mm balloon. Intravascular ultrasound was performed which showed diffuse disease distally however relatively normal area with 2.75 mm in diameter and more proximally 3.25 mm with disease coming right up to the ostium. Therefore decision was made to perform stenting from the circumflex into the OM1 branch with AV groove circumflex very small and without significant disease. Therefore a 2.75 x 33 mm drug-eluting stent was placed from the circumflex into OM1 branch. Repeat intravascular ultrasound showed some underexpansion of the proximal portion of the stent however excellent sizing distally with no dissection. The proximal portion of the stent was postdilated with a 3.25 mm noncompliant balloon. Repeat intravascular ultrasound was performed which showed excellent stent apposition with no dissection. Final angiograms were performed. Preintervention there was 99% angela nosis and ALIZA-3 flow and postintervention there was less than 10% stenosis and ALIZA-3 flow. The right radial sheath was removed and a TR band was placed with hemostasis achieved. The patient tolerated the procedure well. Patient was transported back to the post catheterization holding area in stable condition. Conscious Sedation: Patient was monitored under the direct supervision of myself for conscious sedation using Versed and fentanyl for a total duration of 35 minutes HEMODYNAMICS: Aorta: 98/67 SELECTIVE CORONARY ARTERIOGRAPHY: LEFT MAIN: The left main is a large caliber vessel which bifurcates into the LAD and circumflex. There is no significant stenosis. LEFT ANTERIOR DESCENDING CORONARY ARTERY: LAD is a large caliber vessel which wraps around to the apex. There is diffuse proximal to mid LAD 30 to 40% stenosis LEFT CIRCUMFLEX CORONARY ARTERY: Left circumflex is a moderate caliber vessel with a moderate caliber OM1 branch with proximal OM1 99% stenosis and mid OM1 80 % stenosis and otherwise mild 20 to 30% distal OM1 stenosis. The AV groove circumflex has no significant disease.. RIGHT CORONARY ARTERY: The right coronary artery was not imaged, see separate diagnostic report. FINAL IMPRESSION: 1. CAD as described above including LAD 30 to 40% stenosis, OM1 99% / 80% stenosis 2. Status post PCI circumflex into OM1 with a 2.75 x 33mm Xience ALETHA, post dilated with a 3.25mm NC balloon PLAN: 1. Aggressive risk factor modification per most recent ACC/AHA guidelines. 2. Continue dual antiplatelets with aspirin and Brilinta for 12 months.
[2024-07-06 14:42] LABS: % Iron Saturation 6.35 (12.00-45.00); Chol/HDL Ratio 2.93 Ratio; Ferritin 13.6 ng/mL (10.0-291.0); Iron 28 UG/DL (50-170); LDL Cholesterol,Calculated 144.5 mg/dL (0.0-131.0); Total Iron Binding Capacity 441 UG/DL (228-460); VLDL Calculation 19.04 mg/dL (5.00-40.00)
--- NOTE | 2024-07-06 15:12 | P.PN ---
Progress Note - Text Progress Note Date: 07/06/24 Chief Complaint: Chest tightness Pleasant 68-year-old patient who follows with Dr. Vianney Garzon. Chronic medical conditions include diabetes, COPD, anxiety. Chronic back pain has had surgery including rods and screws. And muscle spasms Patient just finishing course of steroids and doxycycline for flareup of her COPD. 3 days ago patient noticed increased chest tightness. That is on . She felt it was part of her COPD exacerbation. Then it got better. Yesterday symptoms became much worse. No dizziness no lightheadedness. Did feel more tired. No perspiration. Patient went down to [facility]. High- sensitivity troponin was 72 and 51. Patient was sent in for acute non-Q wave OR. Initial troponin here was 1.3 then 1.4. Cardiology was informed. Patient started on IV heparin. Currently no chest pain. Patient daughter at the bedside. July 4: Earlier today patient underwent stent to OM1 by Dr. Michelle. Postprocedure laying in bed. Comfortable. No chest pain Active Medications Hydrocodone Bitart/Acetaminophen (Hydrocodone/Apap 5-325mg 1 Each Tab) 1 each PO Q6HR [facility] Last Admin: 07/06/24 13:18 Dose: 1 each Al Hydroxide/Mg Hydroxide (Mag Hydrox/Al Hydrox/Simeth 30 Ml Cup) 30 ml PO Q4HR PRN PRN Reason: Heartburn Albuterol/Ipratropium (Ipratropium-Albuterol 3 Ml Neb) 3 ml INHALATION RT-QID [facility] Last Admin: 07/06/24 12:08 Dose: Not Given Alprazolam (Alprazolam 0.25 Mg Tab) 0.25 mg PO Q6HR PRN PRN Reason: Mild Anxiety Alprazolam (Alprazolam 0.5 Mg Tab) 0.5 mg PO Q6HR PRN PRN Reason: Moderate Anxiety Aspirin (Aspirin 81 Mg) 81 mg PO DAILY [facility] Last Admin: 07/06/24 06:10 Dose: 81 mg Atorvastatin Calcium (Atorvastatin 80 Mg Tab) 80 mg PO HS [facility] Last Admin: 07/05/24 20:00 Dose: 80 mg Atropine Sulfate (Atropine Sulfate 0.1 Mg/Ml 10ml Syringe) 0.5 mg IV ONCE PRN PRN Reason: Symptomatic Bradycardia Bupropion HCl (Bupropion Xl 150 Mg Tab.Er.24h) 150 mg PO DAILY [facility] Last Admin: 07/06/24 06:10 Dose: 150 mg Clonazepam (Clonazepam 0.5 Mg Tab) 0.5 mg PO BID@0800,1200 [facility] Last Admin: 07/06/24 13:19 Dose: 0.5 mg Clonazepam (Clonazepam 1 Mg Tab) 1 mg PO HS [facility] Last Admin: 07/05/24 19:59 Dose: 1 mg Cyclobenzaprine HCl (Cyclobenzaprine 5 Mg Tab) 5 mg PO BID [facility] Last Admin: 07/06/24 06:10 Dose: 5 mg Fluoxetine HCl (Fluoxetine Hcl 20 Mg Cap) 60 mg PO DAILY [facility] Last Admin: 07/06/24 06:10 Dose: 60 mg Heparin Sodium (Porcine) (Heparin Sodium 1,000 Un/Ml (10ml Vl)) 0 unit IV PER PROTOCOL PRN; Protocol PRN Reason: Low PTT Last Admin: 07/05/24 13:04 Dose: 1,757.5 unit Heparin Sodium/Sodium Chloride (25,000 unit/ Sodium Chloride) 250 mls @ 8.437 mls/hr IV .Q24H [facility]; Protocol Last Admin: 07/06/24 02:40 Dose: 14 units/kg/hr, 9.843 mls/hr Heparin Sodium (Porcine) 10, (000 unit/ Sodium Chloride) 1,001 mls @ 999 mls/hr IRRIGATION ONCE PRN PRN Reason: INTRA-OP Stop: 07/07/24 23:00 Heparin Sodium (Porcine) 2,500 (unit/ Sodium Chloride) 250.5 mls @ 250 mls/hr IRRIGATION ONCE PRN PRN Reason: INTRA-OP Stop: 07/07/24 23:00 Sodium Chloride 1,000 ml/ IV (Solution) 1,000 mls @ 69.5 mls/hr IV .[id number] [facility] Last Admin: 07/06/24 08:16 Dose: 69.5 mls/hr Sodium Chloride 1,000 ml/ IV (Solution) 1,000 mls @ 69.5 mls/hr IV .[id number] [facility] Stop: 07/06/24 16:14 Last Admin: 07/06/24 13:34 Dose: Not Given Metoprolol Tartrate (Metoprolol Tartrate 12.5 Mg Tab) 12.5 mg PO BID [facility] Miscellaneous Information (Rx Info: Iv Contrast Was Given 1 Each Misc) 1 each MISCELLANE DAILY PRN PRN Reason: Per Protocol Stop: 07/08/24 12:14 Nitroglycerin (Nitroglycerin Sl Tabs 0.4 Mg Tab) 0.4 mg SUBLINGUAL Q5M PRN PRN Reason: Chest Pain Nitroglycerin (Nitroglycerin Oint 1 Inch/Gm Packet) 1 inch TOPICAL Q8HR [facility] Last Admin: 07/06/24 06:10 Dose: Not Given Ticagrelor (Ticagrelor 90 Mg Tab) 90 mg PO BID [facility]; Protocol Zolpidem Tartrate (Zolpidem 5 Mg Tab) 5 mg PO HS PRN PRN Reason: Insomnia Social history: Patient lives with her boyfriend.. Averaged about a pack a day for 56 years stopped 2 years ago. Occasional alcohol Physical examination: VITAL SIGNS: 97.6, 106, 16, 119 x 78, 92% room air GENERAL: BMI 26.6, resting EYES: Pupils equal. Conjunctiva ajit l. HEENT: External appearance of nose and ears normal, oral cavity grossly normal. NECK: JVD not raised; masses not palpable. HEART: First and second heart sounds are normal; no edema. LUNGS: Respiratory rate normal; diminished breath sounds. ABDOMEN: Soft, nontender, liver spleen not palpable, no masses palpable. PSYCH: Alert and oriented x3; mood and affect ajit l. MUSCULOSKELETAL:No Clubbing/cyanosis;muscles-grossly intact. 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 Iron 28 TIBC 441% saturation 6.35 ferritin 13.6 transferrin 315 July 06: White count 10.6 hemoglobin 9.4 platelets 189 potassium 3.8 creatinine 0.66 July 05, 2024: White count 12.6 hemoglobin 9.4 platelets 494 sodium 136 potassium 3.7 BUN 18 creatinine 0.69 Troponin I 1.36, 1.48, 1.63 EKG tracing personally reviewed by me-normal sinus rhythm Assessment plan: - Acute non-Q wave OR. Cardiac risk factors include longstanding history of smoking. Postmenopausal. Aspirin. Lipitor. IV heparin Status post stent - CAD Cardiac catheterization: Diffuse proximal to mid LAD 30-40% stenosis. OM1 proximal 99% stenosis and mid OM1 80% stenosis. Intervention to OM1 with stent - Microcytic anemia Iron deficiency anemia. Transfuse IV Ferrlecit Follow-up with Dr. May Jean Baptiste outpatient - IV heparin monitoring.: Discontinue - COPD in a previous smoker DuoNeb - Chronic low back pain for prior lumbar surgery with rods and screws [place] every 6. Flexeril. Hold off NSAIDs - Depression and anxiety Wellbutrin XL. Klonopin. Prozac. - Hyperlipidemia Lipitor Discussed with patient Past Medical History Past Medical History: COPD Additional Past Medical History / Comment(s): chronic back pain Past Surgical History: Back Surgery Smoking Status: Former smoker Past Alcohol Use History: None Reported Past Drug Use History: None Reported
[2024-07-06] MEDS: SODIUM FERRIC GLUCONAT-SUCROSE 125 MG in SODIUM CHLORIDE 0.9% 100 ML IVPB SCH (15:40)
[2024-07-06] MEDS: TICAGRELOR 90 MG TAB PO SCH (19:43)
[2024-07-06] MEDS: METOPROLOL TARTRATE 12.5 MG TAB PO SCH (19:43)
[2024-07-07 04:11] VITALS: RESP 18
[2024-07-07 06:57] LABS: African American GFR (CKD) >90 (>60 ml/min/1.73 sqM); Non-African American GFR(CKD) >90 (>60 ml/min/1.73 sqM)
[2024-07-07] MEDS ORDERED: HEPARIN SODIUM,PORCINE (1 ML) 2,500 UNIT in SODIUM CHLORIDE 0.9% 250 ML IRRIGATION PRN (07:00)
[2024-07-07] MEDS ORDERED: HEPARIN SODIUM,PORCINE 10,000 UNIT in SODIUM CHLORIDE 0.9% 1,000 ML IRRIGATION PRN (07:00)
[2024-07-07] MEDS: METOPROLOL TARTRATE 12.5 MG TAB PO STA (11:32)
--- NOTE | 2024-07-07 14:44 | P.PN ---
Subjective Progress Note Date: 07/07/24 HISTORY OF PRESENT ILLNESS: This is a 68-year-old female with a past medical history significant for COPD with occasional home oxygen use. 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 We have been asked to see the patient in consultation for chest pain. Patient examined at the bedside in the emergency room. Patient initially presented to [facility] with a chief complaint of chest discomfort. Patient was found to have elevated troponins and she was transferred to [facility] for further evaluation. Patient was placed on IV heparin. At the time of examination she denies any chest pain or pressure. She denies any shortness of breath. She is a former cigarette smoker and quit smoking 2 years ago. She denies any history of hypertension, hyperlipidemia, or diabetes. She denies any known history of CAD. DIAGNOSTICS: - EKG reveals sinus mechanism with nonspecific ST-T wave changes. - Laboratory data: WBC 12.65. Hemoglobin 9.4. Platelet count 494. Sodium 136. Potassium 3.7. BUN 18. Creatinine 0.69. Troponin 1.360. 1.480. 1.630. - Current home cardiac medications include none. - No previous echocardiogram, stress test, or cardiac catheterization available in EMR for review / Patient seen and examined. Yesterday, she underwent cardiac catheterization w ryan Michelle which revealed LAD 30 to 40%, OM1 99% / 80% stenosis. Patient underwent PCI of the circumflex into the OM1 with ALETHA. Echocardiogram reveals EF 65 to 70%, moderate mitral regurgitation, mild aortic regurgitation, hypertrophic cardiomyopathy with gradient of 130 mm across the left ventricular outflow tract with systolic anterior motion of the mitral valve. Blood pressure 121/74, heart rate in the 70s, pulse ox 96% on room air. Repeat blood work reveals BUN 21 creatinine 0.66, WBC 10.6, hemoglobin 9.4. Cholesterol 248, triglycerides 95, HDL 144. Patient denies chest pain or chest pressure. She states she had a little lightheadedness or dizziness yesterday after the proce dure. She denies any today. PHYSICAL EXAM: VITAL SIGNS: Reviewed. GENERAL: Well-developed in no acute distress. HEENT: Head is normocephalic. Pupils are equal, round. Sclerae anicteric. Mucous membranes of the mouth are moist. Neck supple. No JVD or thyromegaly LUNGS: Respirations even and unlabored. Lungs essentially clear to auscultation bilaterally. HEART: Regular rate and rhythm. S1 and S2 heard. ABDOMEN: Soft. Nondistended. Nontender. EXTREMITIES: Normal range of motion. No clubbing or cyanosis. Peripheral pulses intact. No lower extremity edema NEUROLOGIC: Awake and alert. Oriented x 3. ASSESSMENT: Non-STEMI status post PCI of the circumflex into the OM1 on 07/06 COPD with occasional home oxygen use Former nicotine dependence, patient quit smoking 2 years ago Moderate mitral regurgitation Mild aortic regurgitation Hypertrophic cardiomyopathy PLAN: Patient is cleared for discharge with plan to continue Brilinta, Lopressor, aspirin, atorvastatin. Patient will follow-up in the office with Dr. Jean Baptiste in 1 week. Nurse practitioner note has been reviewed by physician. Signing provider agrees with the documented findings, assessment, and plan of care documented by [employer] as a scribe. Objective - Vital Signs Vital signs: Vital Signs Temp 98.2 F 07/07/24 07:48 Pulse 71 07/07/24 14:00 Resp 18 07/07/24 14:00 BP 121/74 07/07/24 11:29 Pulse Ox 96 07/07/24 11:29 FiO2 Intake & Output 07/06/24 07/07/24 07/07/24 18:59 06:59 18:59 Intake Total 2862 200 Balance 2862 200 Weight 69.8 kg Intake: IV 502 Intake, IV Titration 1100 Amount Sodium Chloride 0.9% 1, 1100 000 ml In Empty Bag 1 bag @ 1 ML/KG/HR 69.5 mls/hr IV .[id number] [facility] Rx#: [id number] Oral 1260 200 Other: Voiding Method Toilet Toilet Toilet # Voids 1 2 - Labs CBC & Chem 7: 07/06/24 06:12 07/07/24 05:41 Labs: Abnormal Lab Results - Last 24 Hours (Table) 07/06/24 07/07/24 Range/Units 06:12 05:41 Creatinine 0.47 L (0.52-1.04) mg/dL Iron 28 L (50-170) UG/DL % Saturation 6.35 L (12.00-45.00) Cholesterol 248.00 H (0.00-200.00) mg/dL LDL Cholesterol, Calc 144.5 H (0.0-131.0) mg/dL HDL Cholesterol 84.50 H (40.00-60.00) mg/dL
[2024-07-07 15:08] VITALS: BP 121/78; TEMP 98.1
[2024-07-07 16:36] VITALS: PULSE 86
[2024-07-07] MEDS ORDERED: METOPROLOL TARTRATE 25 MG TAB PO SCH (21:00)
--- NOTE | 2024-07-07 21:10 | P.DS ---
Providers Date of admission: 07/05/24 03:17 Expected date of discharge: 07/07/24 Attending physician: Shayne Hayden Consults: 07/05/24 03:15 Consult Physician Routine Consulting Provider: Shayne Hayden Consult Reason/Comments: NSTEMI Do you want consulting provider notified?: Yes 07/05/24 09:16 Consult Physician Stat Consulting Provider: Cristobal Jean Baptiste Consult Reason/Comments: Elevated trop Do you want consulting provider notified?: Yes 07/06/24 12:14 Consult Physician Routine Consulting Provider: [facility] Consult Reason/Comments: Post Interventional Patient Do you want consulting provider notified?: Already Contacted Primary care physician: Vianney Garzon MD Hospital Course: Chief Complaint: Chest tightness Pleasant 68-year-old patient who follows with Dr. Vianney Garzon. Chronic medical conditions include diabetes, COPD, anxiety. Chronic back pain has had surgery including rods and screws. And muscle spasms Patient just finishing course of steroids and doxycycline for flareup of her COPD. 3 days ago patient noticed increased chest tightness. That is on . She felt it was part of her COPD exacerbation. Then it got better. Yesterday symptoms became much worse. No dizziness no lightheadedness. Did feel more tired. No perspiration. Patient went down to [facility]. High- sensitivity troponin was 72 and 51. Patient was sent in for acute non-Q wave MT. Initial troponin here was 1.3 then 1.4. Cardiology was informed. Patient started on IV heparin. Currently no chest pain. Patient daughter at the bedside. July 06: Earlier today patient underwent stent to OM1 by Dr. Michelle. Postprocedure laying in bed. Comfortable. No chest pain July 07: Patient doing well. Did ambulate. No cardiac symptoms. Cleared by cardiology for discharge. Social history: Patient lives with her boyfriend.. Averaged about a pack a day for 56 years stopped 2 years ago. Occasional alcohol Physical examination: VITAL SIGNS: 98.1, 70, 18, 128 x 78, 95% room air GENERAL: Comfortable EYES: Pupils equal. Conjunctiva ajit l. HEENT: External appearance of nose and ears normal, oral cavity grossly normal. NECK: JVD not raised; masses not palpable. HEART: First and second heart sounds are normal; no edema. LUNGS: Respiratory rate normal; diminished breath sounds. ABDOMEN: Soft, nontender, liver spleen not palpable, no masses palpable. PSYCH: Alert and oriented x3; mood and affect ajit l. MUSCULOSKELETAL:No Clubbing/cyanosis;muscles-grossly intact. 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 Moderately increased septal wall thickness moderately increased posterior wall thickness. Hyperdynamic left ventricle systolic function. Moderate pulmonary hypertension. Moderate mitral regurgitation. Left ventricular outflow track obstruction. July 07: Creatinine 0.47 LDL 144.5. Iron 28 TIBC 441% saturation 6.35 ferritin 13.6 transferrin 315 July 06: White count 10.6 hemoglobin 9.4 platelets 189 potassium 3.8 creatinine 0.66 July 05, 2024: White count 12.6 hemoglobin 9.4 platelets 494 sodium 136 potassium 3.7 BUN 18 creatinine 0.69 Troponin I 1.36, 1.48, 1.63 EKG tracing personally reviewed by me-normal sinus rhythm Assessment plan: - Acute non-Q wave MT. Cardiac risk factors include longstanding history of smoking. Postmenopausal. Aspirin. Lipitor. IV heparin Status post stent Follow-up with Dr. Godwin Jean Baptiste - Left ventricular outflow track obstruction/hypertrophic cardiomyopathy. With systolic anterior motion of the mitral valve. Follow outpatient with Dr. Godwin Jean Baptiste - CAD Cardiac catheterization: Diffuse proximal to mid LAD 30-40% stenosis. OM1 proximal 99% stenosis and mid OM1 80% stenosis. Intervention to OM1 with stent - Microcytic anemia Iron deficiency anemia. Transfuse IV Ferrlecit Follow-up with Dr. May Jean Baptiste outpatient - COPD in a previous smoker DuoNeb - Chronic low back pain for prior lumbar surgery with rods and screws Prather every 6. Flexeril. Hold off NSAIDs - Depression and anxiety Wellbutrin XL. Klonopin. Prozac. - Hyperlipidemia Lipitor Disposition: Home Past Medical History Past Medical History: COPD Additional Past Medical History / Comment(s): chronic back pain Past Surgical History: Back Surgery Smoking Status: Former smoker Past Alcohol Use History: None Reported Past Drug Use History: None Reported Plan - Discharge Summary Discharge Rx Participant: No New Discharge Prescriptions: New Nitroglycerin Sl Tabs [Nitrostat] 0.4 mg SUBLINGUAL Q5M PRN tab PRN Reason: Chest Pain Ticagrelor [Brilinta] 90 mg PO BID #180 tab Metoprolol Tartrate [Lopressor] 25 mg PO BID #180 tab Aspirin 81 mg PO DAILY tab Atorvastatin [Lipitor] 80 mg PO HS tab Continue buPROPion XL [Wellbutrin XL] 150 mg PO DAILY clonazePAM [KlonoPIN] 0.5 mg PO BID@0800,1200 clonazePAM [KlonoPIN] 1 mg PO HS Cyclobenzaprine [Flexeril] 5 mg PO BID Ipratropium-Albuterol Nebulize [Duoneb 0.5 mg-3 mg/3 ml Soln] 3 ml INHALATION RT-QID PRN PRN Reason: Shortness Of Breath FLUoxetine HCL [PROzac] 20 mg PO DAILY FLUoxetine HCL 40 mg PO DAILY HYDROcodone/APAP 5-325MG [Prather 5-325] 1 tab PO Q6HR Discontinued predniSONE [Deltasone] 20 mg PO BID-W/MEALS Doxycycline Hyclate 100 mg PO Q12H Ibuprofen [Motrin] 800 mg PO BID Discharge Medication List Aspirin 81 mg PO DAILY tab 07/05/24 [Rx] Atorvastatin [Lipitor] 80 mg PO HS tab 07/05/24 [Rx] Cyclobenzaprine [Flexeril] 5 mg PO BID 07/05/24 [History] FLUoxetine HCL 40 mg PO DAILY 07/05/24 [History] FLUoxetine HCL [PROzac] 20 mg PO DAILY 07/05/24 [History] HYDROcodone/APAP 5-325MG [Prather 5-325] 1 tab PO Q6HR 07/05/24 [History] Ipratropium-Albuterol Nebulize [Duoneb 0.5 mg-3 mg/3 ml Soln] 3 ml INHALATION RT-QID PRN 07/05/24 [History] Nitroglycerin Sl Tabs [Nitrostat] 0.4 mg SUBLINGUAL Q5M PRN tab 07/05/24 [Rx] buPROPion XL [Wellbutrin XL] 150 mg PO DAILY 07/05/24 [History] clonazePAM [KlonoPIN] 0.5 mg PO BID@0800,1200 07/05/24 [History] clonazePAM [KlonoPIN] 1 mg PO HS 07/05/24 [History] Metoprolol Tartrate [Lopressor] 25 mg PO BID #180 tab 07/07/24 [Rx] Ticagrelor [Brilinta] 90 mg PO BID #180 tab 07/07/24 [Rx] Follow up Appointment(s)/Referral(s): Vianney Garzon MD [Primary Care Provider] - 1-2 days Cristobal Jean Baptiste MD [STAFF PHYSICIAN] - 1 Week (Office closed, please call and schedule an appointment) Patient Instructions/Handouts: After Radial Heart Catheterization (GEN) Discharge Disposition: HOME WITH HOME HEALTH SERVICES
--- NOTE | 2024-07-09 16:36 | CC ---
CARDIAC CATHETERIZATION REPORT INDICATION: Non ST-segment elevation IL. PROCEDURE NOTE: After obtaining informed consent, left heart catheterization and coronary angiogram were performed via the right radial artery using standard Ryan catheters. The patient tolerated the procedure well without any obvious immediate complications. The patient received moderate conscious sedation. Total sedation time was 18 minutes. Right radial artery access was obtained using Seldinger technique, 6-Mongolian sheath was placed. Catheters and wires were floated into the ascending aorta under fluoroscopic guidance. The patient received verapamil and heparin per protocol. FINDINGS: 1. Hemodynamics: Left ventricular end-diastolic pressure is 5 mm. There is no significant gradient across the aortic valve. 2. Left ventriculogram: Left ventriculogram was not performed. 3. Angiographic data: a.Right coronary artery is a large dominant vessel and is free of significant stenosis, appears calcified. b.Left main coronary artery appears calcified, divides into left anterior descending coronary artery and circumflex coronary artery. c.LAD shows a mild nonobstructive CAD in the proximal portion. d.Circumflex coronary artery shows segmental areas of high-grade stenosis. There is a midportion where it shows a 95% stenosis and more proximally there is a 70% to 80% stenosis. CONCLUSION: 90% stenosis involving the OM branch. PLAN: I asked Dr. Triana, the on-call zigzag stitcher to review the angiographic data and advise on the angioplasty of the circumflex coronary artery. MMODL / IJN: [id number] /
== END 2024-07-07 17:58 | disposition home health service (06) | DRG 322 ==
LOC: EC 00:01 → 3SCARD 03:17
PROVIDERS: ADMIT Hospitalist; ATTEND Hospitalist
PROC: 027034Z Dilation of Coronary Artery, One Artery with Drug-eluting Intraluminal Device, Percutaneous Approach (ICD-10-PCS; principal; 2024-07-06 09:51)
PROC: B2111ZZ Fluoroscopy of Multiple Coronary Arteries using Low Osmolar Contrast (ICD-10-PCS; principal; 2024-07-06 09:51)
PROC: B240ZZ3 Ultrasonography of Single Coronary Artery, Intravascular (ICD-10-PCS; principal; 2024-07-06 09:51)
PROC: 4A023N7 Measurement of Cardiac Sampling and Pressure, Left Heart, Percutaneous Approach (ICD-10-PCS; principal; 2024-07-06 09:51)
DX: I21.4 Non-ST elevation (NSTEMI) myocardial infarction (principal); E87.1 Hypo-osmolality and hyponatremia; J44.1 Chronic obstructive pulmonary disease with (acute) exacerbation; E11.9 Type 2 diabetes mellitus without complications; I08.2 Rheumatic disorders of both aortic and tricuspid valves; D50.9 Iron deficiency anemia, unspecified; I42.2 Other hypertrophic cardiomyopathy; Z87.891 Personal history of nicotine dependence; F41.8 Other specified anxiety disorders; I25.10 Atherosclerotic heart disease of native coronary artery without angina pectoris; G89.29 Other chronic pain; I25.2 Old myocardial infarction; Z79.82 Long term (current) use of aspirin; Z79.899 Other long term (current) drug therapy; Z82.49 Family history of ischemic heart disease and other diseases of the circulatory system; Z88.2 Allergy status to sulfonamides; M54.50 Low back pain, unspecified; Z79.02 Long term (current) use of antithrombotics/antiplatelets
CPT/HCPCS: 36415; 71046; 80048; 80053; 80061; 82565; 82607; 82728; 82746; 83036; 83540; 83550; 83735; 84484; 85025; 85610; 85730; 92978; 93005; 93306; 93458; 94640; 94760; 96365; 96366; 99291